=== PATIENT | male | born 1940 | race Caucasian/White ===

== ENCOUNTER → 2020-12-26 | Outpatient (CLI) | payer MEDICARE ==
--- NOTE | 2020-12-26 19:56 | CONS ---
CONSULTATION DATE OF SERVICE: 12/26/2020. 80-year-old gentleman has been evaluated in [facility] Center for his sleep problems and excessive daytime sleepiness and also for difficulties to initiate sleep. HISTORY OF PRESENT ILLNESS/SLEEP-WAKE EVALUATION: SLEEP SCHEDULE: The patient usually goes to bed around 11 p.m. and gets out of bed around 8 or 9:00 am. FALLING ASLEEP: He does have problems with falling asleep. He reads in bedroom. DURING SLEEP: He usually sleeps on the side position. He snores and wakes up from sleep 3 times with nocturia, dry mouth, and restless leg symptoms. DURING THE DAY/SLEEP WAKE EVALUATION: In the morning, patient wakes up tired, falling asleep during the day. Has episodes of depression. Harwood Sleepiness Scale is in the very high range of 21. According to patient, he can take naps any time. No vivid dreams during naps. No history of hypnagogic hallucinations, sleep paralysis or cataplexy. PAST MEDICAL HISTORY: Positive for bronchospasm, right lung bronchiectasis, COPD. PAST SURGICAL HISTORY: None. MEDICATIONS: Clonazepam 0.5 mg at bedtime. Ventolin on a p.r.n. basis. Vitamin C, B12, folic acid. SOCIAL HISTORY: Positive for smoking in the past; quit about 30 years ago. Alcohol consumption none. PHYSICAL EXAMINATION: GENERAL: A pleasant gentleman without distress. BP 106/61, HR 56, RR 15, height 5 feet 7 inches, weight 161.2, temperature 98.1, oxygen saturation at room air 96%. Oropharynx: Short distance between soft palate and posterior pharyngeal wall. Neck measures 16 inches in circumference. NECK: Supple, no JVD. Thyroid is not palpable. LUNGS: Clear to percussion and to auscultation. Good air exchange. No wheezing or rhonchi. HEART: S1, S2 regular. No murmurs, gallops, or rubs. ABDOMEN: Soft and nontender. Bowel sounds are present. No organomegaly appreciated. EXTREMITIES: No clubbing or cyanosis. SHELL CORE AND MOLDING SUPERVISOR: Awake, alert, and oriented X3. Cranial nerves 2 to 7 intact. There is no fasciculation or atrophy. noted. No focal deficits observed. IMPRESSION: 1. Snoring, awakenings from sleep 3 times with nocturia and dry mouth, significant excessive daytime sleepiness, possible obstructive sleep apnea-hypopnea syndrome. 2. Significant excessive daytime sleepiness with Harwood Sleepiness Scale of 21, which is extremely high, dictate necessity to include narcolepsy without cataplexy and hypersomnia in differential diagnosis. 3. History of right lung bronchiectasis, chronic obstructive pulmonary disease. 4. History of bronchospasm. PLAN: 1. Polysomnogram for evaluation of patient's breathing during sleep with multiple sleep latency test. The sleep study will be negative for obstructive sleep apnea- hypopnea syndrome. 2. CPAP/BiPAP titration if sleep study confirms obstructive sleep apnea-hypopnea syndrome. 3. Preferable position during sleep on the side. 4. No driving if patient feels any sleepiness. 5. I will see patient for follow up visit to explain results of testing and following plan. Thank you very much for referring this patient for consultation. Sincerely, Eduardo Chaney MD, PhD, FAASM Diplomat of [employer] Surgery Specialist of [facility] [place] MMODL / LINDAN: [id number] /
== END ==
LOC: SLEEP 11:46
PROVIDERS: ATTEND Internal Medicine
DX: R06.83 Snoring (principal); R35.1 Nocturia; J44.9 Chronic obstructive pulmonary disease, unspecified; Z87.891 Personal history of nicotine dependence; Z87.09 Personal history of other diseases of the respiratory system
CPT/HCPCS: 99211

== ENCOUNTER → 2021-03-07 | Outpatient (CLI) | payer MEDICARE, BC ==
--- NOTE | 2021-03-07 22:17 | SFUN ---
SLEEP CENTER FOLLOW UP NOTE DATE OF SERVICE: 03/07/2021 80-year-old gentleman has been followed in Sleep Center to discuss results of sleep study and following plan. I discussed results of sleep studies with patient in details. Diagnostic polysomnogram did not show significant abnormalities of respiration. Severe periodic limb movements have been documented 86.6 times per hours with 15.3 microarousals per hour. Multiple sleep latency test followed polysomnogram showed sleepiness. Mean sleep latency short 4.1 minutes average. One sleep onset REM period has been documented. The patient had iron profile done because low level of iron increases risk for periodic limb movements and level of ferritin is above normal range, so definitely does not indicate necessity for any additional iron supplement. MEDICATIONS: Clonazepam, Ventolin. PHYSICAL EXAMINATION: GENERAL: Patient in no distress. BP 117/66, HR 58, RR 15, oxygen saturation at room air 95%. Height 5 feet 7 inches, weight 161. HEENT: PERRLA, EOMI, evaluation of oropharynx showed tongue protrudes midline. NECK: Supple, no JVD. Thyroid is not palpable. LUNGS: Clear to percussion and to auscultation. Good air exchange. No wheezing or rhonchi. HEART: S1, S2 regular. No murmurs, gallops, or rubs. ABDOMEN: Soft and nontender. Bowel sounds are present. No organomegaly appreciated. EXTREMITIES: No clubbing or cyanosis. CHAIN SPLITTER: Awake, alert, and oriented X3. Cranial nerves 2 to 7 intact. There is no fasciculation or atrophy. noted. No focal deficits observed. IMPRESSION: 1. No significant respiratory abnormalities during the sleep study following today's criteria. 2. Severe periodic limb movements have been documented. 3. Significant excessive daytime sleepiness confirmed by multiple sleep latency test. mean sleep latency 6.1. One sleep onset REM periods have been documented. Differential diagnosis should include narcolepsy without cataplexy. 4. History of right lung bronchiectasis, chronic obstructive pulmonary disease. PLAN: 1. Trial with small was burst of dopaminergic agonists Mirapex 0.125 mg 1-2 tablets at bedtime to evaluate clinically patient responds on improvements alertness during the day. 2. If no response on treatment of periodic limb movements, the patient will be started on treatment with modafinil 200 mg one tablet in the morning with a goal to prevent sleepiness during the day. 3. Sleep hygiene with regular time in bed for 7-1/2 to 8 hours. 4. No driving if feeling sleepiness. Thank you very much for allowing me to participate in management of your patient. Sincerely, Eduardo Chaney MD, PhD, FAASM Diplomat of [employer] Sleep Medicine Board of [employer] Physical Education Department Chair of [facility] [place] MMODL / ILNDAN: [id number] /
== END | disposition home or self-care (01) ==
LOC: SLEEP 13:07
PROVIDERS: ATTEND Internal Medicine
DX: G47.10 Hypersomnia, unspecified (principal); G47.61 Periodic limb movement disorder; J44.9 Chronic obstructive pulmonary disease, unspecified; Z87.09 Personal history of other diseases of the respiratory system

== ENCOUNTER → 2021-09-10 | Outpatient (CLI) | payer MEDICARE ==
--- NOTE | 2021-09-10 17:05 | XR ---
Right shoulder HISTORY: Pain in right shoulder 3 views of the right shoulder Acromioclavicular joint shows arthropathy with hypertrophic change. Right lung apex as visualized is normal. Bone mineralization is reduced. Alignment is maintained. There is a distal acromial spur. No fracture or dislocation. Mild spurring at the glenohumeral joint. IMPRESSION: Correlate for impingement. Consider shoulder MRI. Osteoarthritis.
== END ==
LOC: RADXRMAIN 12:52
PROVIDERS: ATTEND Internal Medicine
DX: M19.011 Primary osteoarthritis, right shoulder (principal)

== ENCOUNTER → 2021-09-24 | Outpatient (CLI) | payer MEDICARE ==
--- NOTE | 2021-09-24 19:26 | MR ---
EXAMINATION TYPE: MR shoulder RT wo con DATE OF EXAM: 09/24/2021 COMPARISON: Plain film 09/10/2021 HISTORY: Right shoulder painfor 2 years. TECHNIQUE: Multiplanar, multisequence imaging of the right shoulder is performed without contrast. FINDINGS: Rotator Cuff: There is a partial full-thickness tear of the supraspinatus tendon seen with extension to the level the musculotendinous junction anteriorly, there is abnormal thickening of the rotator cu ff consistent with tendinopathy. Abnormal thickening also present along the anterior margin of the ortega bscapularis tendon abnormal signal suggestive at least a partially frayed appearance Acromioclavicular Joint: Acromioclavicular joint shows arthropathy change with some mass effect on th e musculotendinous junction of supraspinatus, there is a distal acromial spur present Glenohumeral Joint: Intact, there is arthropathy change with remodeling of the humeral head, shoulder s somewhat high riding Labrum: Suspect there is an anterior labral tear Biceps Tendon: Long head of biceps tendon shows abnormal thickening and is subluxed anteriorly and me dially from the bicipital groove, there is fluid signal present along the tendon Bone marrow signal: Pseudocysts are present within the humeral head. Other: Fluid signal is present in the subacromial subdeltoid bursa. Fluid signal present along the mu sculotendinous junction of subscapularis IMPRESSION: Rotator cuff tear as described, possible anterior labral tear. There is a joint effusion. Additional findings above.
== END | disposition home or self-care (01) ==
LOC: RADMRIMAIN 15:44
PROVIDERS: ATTEND Internal Medicine
DX: M75.111 Incomplete rotator cuff tear or rupture of right shoulder, not specified as traumatic (principal); M25.411 Effusion, right shoulder; M85.611 Other cyst of bone, right shoulder; M12.811 Other specific arthropathies, not elsewhere classified, right shoulder; M67.813 Other specified disorders of tendon, right shoulder

== ENCOUNTER 2022-07-17 09:10 | Emergency (ER) | payer MEDICARE ==
[2022-07-17 09:15] VITALS: RESP 18
--- NOTE | 2022-07-17 10:48 | XR ---
EXAMINATION TYPE: XR shoulder complete RT DATE OF EXAM: 07/17/2022 10:17 AM INDICATION: Patient age:Male; 82 years old; Reason for study: pain; COMPARISON: 09/10/2021 TECHNIQUE: The left shoulder was examined in AP, internally rotated and scapular Y projections. . FINDINGS: Degeneration of the acromioclavicular and glenohumeral joints. No evidence of acute osseous pathology, joint dislocation, or soft tissue swelling. The remaining por tions of the visualized chest are unremarkable. IMPRESSION: 1. No acute osseous pathology. 2. 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
[2022-07-17] MEDS ORDERED: ACET/COD 300 MG/30 MG STARTER PACK 6 TAB BTL PO STA (11:10)
--- NOTE | 2022-07-17 11:10 | ED ---
Upper Extremity HPI - General Chief Complaint: Extremity Injury, Upper Stated Complaint: rt shoulder injury Time Seen by Provider: 07/17/22 09:24 Source: patient, RN notes reviewed Mode of arrival: ambulatory Limitations: no limitations - History of Present Illness Initial Comments: 82-year-old male presents emergency from chief complaint of shoulder pain on the right side. Patient states that he's been having issues of the last 3 months has been therapy from his primary care physician. Patient states last night he was working about chest tightness when he had increasing discomfort and pain with range of motion. States it's very limited denies any paresthesias no fall he is left-hand dominant. Patient states he called orthopedics who advised him come emergency from for pain relief. - Related Data Previous Rx's Medication Instructions Recorded predniSONE 50 mg PO DAILY #5 tab 07/17/22 Allergies Allergy/AdvReac Type Severity Reaction Status Date / Time No Known Allergies Allergy Verified 07/17/22 09:15 Review of Systems ROS Statement: Those systems with pertinent positive or pertinent negative responses have been documented in the HPI. ROS Other: All systems not noted in ROS Statement are negative. Past Medical History Past Medical History: No Reported History History of Any Multi-Drug Resistant Organisms: None Reported Past Surgical History: Orthopedic Surgery Additional Past Surgical History / Comment(s): facial surgery Past Psychological History: No Psychological Hx Reported Smoking Status: Never smoker Past Alcohol Use History: Daily Past Drug Use History: None Reported General Exam Limitations: no limitations General appearance: alert, in no apparent distress Head exam: Present: atraumatic, normocephalic, normal inspection Eye exam: Present: normal appearance, PERRL, EOMI. Absent: scleral icterus, conjunctival injection, periorbital swelling ENT exam: Present: normal exam, normal oropharynx, mucous membranes moist Neck exam: Present: normal inspection, full ROM. Absent: tenderness, meningismus, lymphadenopathy Respiratory exam: Present: normal lung sounds bilaterally. Absent: respiratory distress, wheezes, rales, rhonchi, stridor Cardiovascular Exam: Present: regular rate, normal rhythm, normal heart sounds. Absent: systolic murmur, diastolic murmur, rubs, gallop, clicks Extremities exam: Present: other (Right shoulder there is minimal tenderness there is pain with active range of motion minimal pain with passive, no iris deformity no clavicular tenderness no tenderness along the scapula) Course Vital Signs 07/17/22 09:11 Temperature 97.7 F Pulse Rate 59 L Respiratory 18 Rate Blood Pressure 150/87 O2 Sat by Pulse 98 Oximetry Medical Decision Making - Medical Decision Making X-ray shows significant osteoporosis type changes, otherwise no acute osseous le tristin or abnormality as interpreted by me and radiology. Patient has right shoulder tendinitis, right shoulder rotator cuff syndrome. Patient will be followed up with orthopedics return parameters were discussed. Disposition Clinical Impression: Right shoulder tendinitis, Rotator cuff syndrome of right shoulder Disposition: HOME SELF-CARE Condition: Stable Instructions (If sedation given, give patient instructions): Rotator Cuff Tendinitis (ED) Additional Instructions: Please return to the Emergency Department if symptoms worsen or any other concerns. Prescriptions: predniSONE 50 mg PO DAILY #5 tab Is patient prescribed a controlled substance at d/c from ED?: No Referrals: Ho Amador DO [Primary Care Provider] - 1-2 days Time of Disposition: 11:10
[2022-07-17] MEDS ORDERED: methylPREDNISolone SOD SUCCI 125 MG/2 ML VIAL IM ONE (11:17)
[2022-07-17 11:56] VITALS: BP 148/78; PULSE 60; TEMP 97
== END 2022-07-17 11:55 | disposition home or self-care (01) ==
LOC: EC 09:10
DX: M77.8 Other enthesopathies, not elsewhere classified (principal); M75.101 Unspecified rotator cuff tear or rupture of right shoulder, not specified as traumatic
CPT/HCPCS: 73030; 99283; 96372; J2930

== ENCOUNTER → 2022-07-17 | Outpatient (CLI) | payer MEDICARE ==
--- NOTE | 2022-07-17 09:58 | BD ---
EXAMINATION TYPE: Axial Bone Density DATE OF EXAM: 07/17/2022 COMPARISON: BASELINE CLINICAL HISTORY: 82 years year old Male. ICD-10 CODE: M89.8X8 DISORDER OF BONE DENSITY Height: 66.5 Weight: 166 FRAX RISK QUESTIONS: Alcohol (3 or more units per day): YES Family History (Parent hip fracture): NO Glucocorticoids (More than 3mos): NO (Ex: prednisone, prednisolone, methylprednisolone, dexamethasone, and hydrocortisone). History of Fracture in Adulthood: YES, LEFT FINGERS AND LEFT ZYGOMATIC ARCH Secondary Osteoporosis: 1. Type 1 Diabetes: NO 2. Hyperthyroidism: NO 3. Menopause before 45: N/A 4. Malnutrition: NO 5. Chronic liver disease: NO Rheumatoid Arthritis: NO Current Tobacco Use: NO RISK FACTORS HISTORY OF: Hip Fracture (Right/Left): NO Spine Fracture: NO History of Wrist Fracture: NO Surgery to Spine/Hip(right/left)/Wrist (right/left): NO Family History of Osteoporosis: NO Active: YES Diet low in dairy products/other sources of calcium: NO Lost more than 2 inches in height since high school: YES Frequent falls: NO Poor Health: GOOD Hyperparathyroidism: NO Adrenal Insufficiency: NO MEDICATIONS: Additional Medications: PROBIOTIC, B12, B1, VIT C, VIT D, VIT K, NO PRESCRIPTION MEDICATIONS Additional History: NONE EXAM MEASUREMENTS: Bone mineral densitometry was performed using the [employer] System. Bone mineral density as measured about the Lumbar spine is: ----- L1-L4(G/cm2): 1.227 T Score Values are as follows: ----- L1: 0.0 ----- L2: 0.3 ----- L3: 0.6 ----- L4: 0.6 ----- L1-L4: 0.4 BASELINE Bone mineral density about the R hip (g/cm2): 0.857 Bone mineral density about the L hip (g/cm2): 0.790 T Score values are as follows: -----R Neck: -1.3 -----L Neck: -1.8 -----R Total: -0.6 -----L Total: -1.1 BASELINE FRAX%s: The graph provided illustrates a 9.7% chance for a major osteoporotic fx and a 4.0% chance fo r the hips probability for fx in 10 years time. IMPRESSION: Osteopenia (T Score between -2.5 and -1). There is slightly increased risk of fracture and the patient may be considered for treatment. Re-Screen 2-5 years. NOTE: T-SCORE=SD OF THE YOUNG ADULT MEAN.
== END | disposition home or self-care (01) ==
LOC: RADBDWWP 08:15
PROVIDERS: ATTEND Internal Medicine
DX: M85.89 Other specified disorders of bone density and structure, multiple sites (principal)
CPT/HCPCS: 77080

== ENCOUNTER → 2024-02-08 | Outpatient (CLI) | payer MEDICARE ==
--- NOTE | 2024-02-08 16:23 | XR ---
EXAMINATION TYPE: XR shoulder complete LT DATE OF EXAM: 02/08/2024 4:09 PM CLINICAL INDICATION:Male, 83 years old with history of M25.512 PAIN IN LEFT SHOULDER; [facility] COMPARISON: TECHNIQUE: XR shoulder complete LT; examined in AP, internally rotated and scapular Y projections. FINDINGS: No evidence of acute osseous pathology, joint dislocation, or soft tissue swelling. The remaining po rtions of the visualized chest are unremarkable. Degeneration changes of the acromion, distal clavic le with osteophyte formation. There is osteophyte formation of the glenoid and humeral head. There is joint space narrowing of glenohumeral joint. IMPRESSION: 1. No acute osseous pathology. 2. Mild shoulder osteoarthrosis.
== END | disposition home or self-care (01) ==
LOC: RADXRMAIN 15:53
PROVIDERS: ATTEND Internal Medicine
DX: M19.012 Primary osteoarthritis, left shoulder (principal)

== ENCOUNTER → 2024-03-18 | Outpatient (CLI) | payer MEDICARE ==
--- NOTE | 2024-03-18 12:10 | XR ---
EXAMINATION TYPE: XR knee limited RT DATE OF EXAM: 03/18/2024 10:31 AM CLINICAL INDICATION: Male, 83 years old with history of M25.561 right knee pain; [facility] COMPARISON: None. TECHNIQUE: XR knee limited RT; examined in Frontal, lateral projections. FINDINGS: No evidence of any acute osseous pathology, soft tissue swelling, or joint effusion is no eneida. Tricompartmental osteophyte formation involving the femoral condyles, tibial plateau and patella . Mild joint space narrowing. IMPRESSION: 1. No acute osseous pathology. 2. Mild tricompartmental osteoarthritic changes.
== END | disposition home or self-care (01) ==
LOC: RADXRMAIN 10:16
PROVIDERS: ATTEND Internal Medicine
DX: M25.561 Pain in right knee

== ENCOUNTER 2024-04-21 09:20 | Observation (INO) | payer MEDICARE ==
--- NOTE | 2024-04-21 09:50 | ED ---
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 Patient states this morning every time he attempted he felt like he might pass out. Patient states he was unable to stand because he thought he definitely would pass out. Patient states he has done this multiple times and it occurs every single time he tries it. Patient denies any history of atrial fibrillation. Patient denies any chest pain or palpitations. Patient states he is a little short of breath but no different than his baseline. Patient [place] any fever chills or cough or patient has any abdominal pain patient has nausea vomiting or diarrhea. - Related Data Previous Rx's Medication Instructions Recorded predniSONE 50 mg PO DAILY #5 tab 07/17/22 Allergies Allergy/AdvReac Type Severity Reaction Status Date / Time No Known Allergies Allergy Verified 04/21/24 09:46 Review of Systems ROS Statement: Those systems with pertinent positive or pertinent negative responses have been documented in the HPI. ROS Other: All systems not noted in ROS Statement are negative. 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 Patient is nontoxic and well- hydrated and is in mild distress. ENT: Neck is soft and supple. No significant lymphadenopathy is noted. Oropharynx is clear. Moist mucous membranes. Neck has full range of motion without eliciting any pain. EYES: The sclera were anicteric and conjunctiva were pink and moist. Extraocular movements were intact and pupils were equal round and reactive to light. Eyelids were unremarkable. PULMONARY: Unlabored respirations. Good breath sounds bilaterally. No audible rales rhonchi or wheezing was noted. CARDIOVASCULAR: Patient is tachycardic at 120 beats a minute and it is irregular ABDOMEN: Soft and nontender with normal bowel sounds. SKIN: Skin is clear with no lesions or rashes and otherwise unremarkable. NEUROLOGIC: Patient is alert and oriented x3. Cranial nerves II through XII are grossly intact. Motor and sensory are also intact. Normal speech, volume and content. Symmetrical smile. MUSCULOSKELETAL: Normal extremities with adequate strength and full range of motion. LYMPHATICS: No significant lymphadenopathy is noted PSYCHIATRIC: Normal psychiatric evaluation. Limitations: no limitations Course Vital Signs 04/21/24 04/21/24 04/21/24 09:27 10:56 11:32 Temperature 97.6 F Pulse Rate 122 H 116 H Pulse Rate [ Sitting Journeyman Lineman] Pulse Rate [ Standing Journeyman Lineman ] Pulse Rate [ 130 H Supine Pulse Oximetery] Respiratory 20 18 Rate Blood Pressure 95/75 121/88 Blood Pressure [Right Arm Sitting] Blood Pressure [Right Arm Standing] Blood Pressure 104/88 [Right Arm Supine] O2 Sat by Pulse 96 Oximetry 04/21/24 04/21/24 04/21/24 11:33 11:34 12:30 Temperature Pulse Rate 129 H Pulse Rate [ 115 H Sitting Journeyman Lineman] Pulse Rate [ 145 H Standing Journeyman Lineman ] Pulse Rate [ Supine Pulse Oximetery] Respiratory 18 Rate Blood Pressure 111/98 Blood Pressure 85/71 [Right Arm Sitting] Blood Pressure 73/55 [Right Arm Standing] Blood Pressure [Right Arm Supine] O2 Sat by Pulse 96 Oximetry 04/21/24 12:45 Temperature Pulse Rate Pulse Rate [ 68 Sitting Journeyman Lineman] Pulse Rate [ Standing Journeyman Lineman ] Pulse Rate [ Supine Pulse Oximetery] Respiratory 18 Rate Blood Pressure Blood Pressure 102/68 [Right Arm Sitting] Blood Pressure [Right Arm Standing] Blood Pressure [Right Arm Supine] O2 Sat by Pulse 96 Oximetry Medical Decision Making - Medical Decision Making EKG shows atrial fibrillation at 121 bpm QRS is 89 QT interval is 294 QTc is 366. No ST segment elevation or depression is noted there is no old EKG to compare to Was pt. sent in by a medical professional or institution (, PA, SPRING TACKER, urgent care, hospital, or alf...) When possible be specific @ -No Did you speak to anyone other than the patient for history (EMS, parent, family, police, friend...)? What history was obtained from this source @ -No Did you review nursing and triage notes (agree or disagree)? Why? @ -I reviewed and agree with nursing and triage notes Were old charts reviewed (outside hosp., previous admission, EMS record, old EKG, old radiological studies, urgent care reports/EKG's, alf records)? Report findings @ -No old charts were reviewed Differential Diagnosis? @ -Differential Syncope: Valvular disease, hypertrophic cardiomyopathy, pulmonary embolism, tamponade, tachycardia, bradycardia, CT, hypovolemia, hemorrhage, dissection, anemia, intracranial hemorrhage, seizure, hypoglycemia, carbon monoxide poisoning, this is not meant to be an all-inclusive list. EKG interpreted by me (3pts min.). @ -As above X-rays interpreted by me (1pt min.). @ -Chest x-ray showed no acute abnormality CT interpreted by me (1pt min.). @ -None done U/S interpreted by me (1pt. min.). @ -None done What testing was considered but not performed or refused? (CT, X-rays, U/S, labs)? Why? @ -None What meds were considered but not given or refused? Why? @ -None Did you discuss the management of the patient with other professionals (professionals i.e. , PA, SPRING TACKER, lab, RT, psych nurse, social media intern, safety deposit clerk, teacher, restoration officer, case worker)? Give summary @ -I spoke with Dr. Singh and he agreed to admit the patient Was smoking cessation discussed for >3mins.? @ -No Was critical care preformed (if so, how long)? @ -No Were there social determinants of health that impacted care today? How? (Homelessness, low income, unemployed, alcoholism, drug addiction, transportation, low edu. Level, literacy, decrease access to med. care, senior care, rehab)? @ -No Was there de-escalation of care discussed even if they declined (Discuss DNR or withdrawal of care, Hospice)? DNR status @ -No What co-morbidities impacted this encounter? (DM, HTN, Smoking, COPD, CAD, Cancer, CVA, ARF, Chemo, Hep., AIDS, mental health diagnosis, sleep apnea, morbid obesity)? @ -None Was patient admitted / discharged? Hospital course, mention meds given and route, prescriptions, significant lab abnormalities, going to OR and other pertinent info. @ -Patient was orthostatic positive was unable to stand because he thought he was in a pass out and his blood pressure did not drop. Patient was given a liter half of fluid and he still remained orthostatic though he was able to stand at this point. Patient also has atrial fibrillation which she states he is never heard of and they there is no old EKG to compare to Undiagnosed new problem with uncertain prognosis? @ -No Drug Therapy requiring intensive monitoring for toxicity (Heparin, Nitro, Insulin, Cardizem)? @ -No Were any procedures done? @ -No Diagnosis/symptom? @ -New onset A-fib Acute, or Chronic, or Acute on Chronic? @ -Acute Uncomplicated (without systemic symptoms) or Complicated (systemic symptoms)? @ -Complicated Side effects of treatment? @ -No Exacerbation, Progression, or Severe Exacerbation? @ -No Poses a threat to life or bodily function? How? (Chest pain, USA, CT, pneumonia, PE, COPD, DKA, ARF, appy, cholecystitis, CVA, Diverticulitis, Homicidal, Suicidal, threat to staff... and all critical care pts) @ -Yes this could lead to poor perfusion and endorgan dysfunction Diagnosis/symptom? @ -Near syncope Acute, or Chronic, or Acute on Chronic? @ -Acute Uncomplicated (without systemic symptoms) or Complicated (systemic symptoms)? @ -Complicated Side effects of treatment? @ -None Exacerbation, Progression, or Severe Exacerbation] @ -No Poses a threat to life or bodily function? @ -Yes this could be secondary to a life-threatening problem. - Lab Data Result diagrams: 04/21/24 09:51 04/21/24 09:51 Lab Results 04/21/24 04/21/24 04/21/24 Range/Units 09:51 09:51 09:51 WBC 7.6 (3.8-10.6) k/uL RBC 4.48 (4.30-5.90) m/uL Hgb 14.3 (13.0-17.5) gm/dL Hct 42.4 (39.0-53.0) % MCV 94.7 (80.0-100.0) fL MCH 31.9 (25.0-35.0) pg MCHC 33.7 (31.0-37.0) g/dL RDW 11.8 (11.5-15.5) % Plt Count 231 (150-450) k/uL MPV 7.1 Neutrophils % 82 % Lymphocytes % 12 % Monocytes % 3 % Eosinophils % 1 % Basophils % 0 % Neutrophils # 6.2 (1.3-7.7) k/uL Lymphocytes # 0.9 L (1.0-4.8) k/uL Monocytes # 0.3 (0-1.0) k/uL Eosinophils # 0.1 (0-0.7) k/uL Basophils # 0.0 (0-0.2) k/uL PT 11.9 (10.0-12.5) sec INR 1.1 (<1.2) APTT 24.0 (22.0-30.0) sec D-Dimer 0.25 (<0.60) mg/L FEU Sodium 139 (137-145) mmol/L Potassium 4.1 (3.5-5.1) mmol/L Chloride 111 H (98-107) mmol/L Carbon Dioxide 25 (22-30) mmol/L Anion Gap 3 mmol/L BUN 19 (9-20) mg/dL Creatinine 0.93 (0.66-1.25) mg/dL Est GFR (CKD-EPI)AfAm 88 (>60 ml/min/1.73 sqM) Est GFR (CKD-EPI)NonAf 76 (>60 ml/min/1.73 sqM) Glucose 114 H (74-99) mg/dL Calcium 8.9 (8.4-10.2) mg/dL Magnesium 2.0 (1.6-2.3) mg/dL Total Bilirubin 1.0 (0.2-1.3) mg/dL AST 22 (17-59) U/L ALT 17 (4-49) U/L Alkaline Phosphatase 55 (38-126) U/L Troponin I (0.000-0.034) ng/mL Total Protein 6.2 L (6.3-8.2) g/dL Albumin 3.7 (3.5-5.0) g/dL 04/21/24 Range/Units 09:51 WBC (3.8-10.6) k/uL RBC (4.30-5.90) m/uL Hgb (13.0-17.5) gm/dL Hct (39.0-53.0) % MCV (80.0-100.0) fL MCH (25.0-35.0) pg MCHC (31.0-37.0) g/dL RDW (11.5-15.5) % Plt Count (150-450) k/uL MPV Neutrophils % % Lymphocytes % % Monocytes % % Eosinophils % % Basophils % % Neutrophils # (1.3-7.7) k/uL Lymphocytes # (1.0-4.8) k/uL Monocytes # (0-1.0) k/uL Eosinophils # (0-0.7) k/uL Basophils # (0-0.2) k/uL PT (10.0-12.5) sec INR (<1.2) APTT (22.0-30.0) sec D-Dimer (<0.60) mg/L FEU Sodium (137-145) mmol/L Potassium (3.5-5.1) mmol/L Chloride (98-107) mmol/L Carbon Dioxide (22-30) mmol/L Anion Gap mmol/L BUN (9-20) mg/dL Creatinine (0.66-1.25) mg/dL Est GFR (CKD-EPI)AfAm (>60 ml/min/1.73 sqM) Est GFR (CKD-EPI)NonAf (>60 ml/min/1.73 sqM) Glucose (74-99) mg/dL Calcium (8.4-10.2) mg/dL Magnesium (1.6-2.3) mg/dL Total Bilirubin (0.2-1.3) mg/dL AST (17-59) U/L ALT (4-49) U/L Alkaline Phosphatase (38-126) U/L Troponin I <0.012 (0.000-0.034) ng/mL Total Protein (6.3-8.2) g/dL Albumin (3.5-5.0) g/dL Disposition Clinical Impression: Near syncope, New onset a-fib Disposition: ADMITTED IP TO THIS [facility] Referrals: Kaylene Singh MD [Primary Care Provider] - 1-2 days Time of Disposition: 11:54
[2024-04-21] MEDS: SODIUM CHLORIDE 0.9% 1,000 ML IV ONE (10:10)
[2024-04-21] MEDS: SODIUM CHLORIDE 0.9% 500 ML 500 ML IV ONE (10:15)
[2024-04-21 10:21] LABS: Basophils % (A) 0 %; Eosinophils # (A) 0.1 k/uL (0-0.7); Eosinophils % (A) 1 %; HCT 42.4 % (39.0-53.0); HGB 14.3 gm/dL (13.0-17.5); Lymphocytes # (A) 0.9 k/uL (1.0-4.8); Lymphocytes % (A) 12 %; MCH 31.9 pg (25.0-35.0); MCHC 33.7 g/dL (31.0-37.0); MCV 94.7 fL (80.0-100.0); Mean Platelet Volume 7.1; Monocytes # (A) 0.3 k/uL (0-1.0); Monocytes % (A) 3 %; Neutrophils # (A) 6.2 k/uL (1.3-7.7); Neutrophils % (A) 82 %; Platelet Count 231 k/uL (150-450); RBC 4.48 m/uL (4.30-5.90); RDW 11.8 % (11.5-15.5); WBC 7.6 k/uL (3.8-10.6)
[2024-04-21 10:34] LABS: INR 1.1 (<1.2); Prothrombin Time 11.9 sec (10.0-12.5)
[2024-04-21 10:36] LABS: ALT 17 U/L (4-49); AST 22 U/L (17-59); African American GFR (CKD) 88 (>60 ml/min/1.73 sqM); Albumin 3.7 g/dL (3.5-5.0); Alkaline Phosphatase 55 U/L (38-126); Anion Gap 3 mmol/L; Blood Urea Nitrogen 19 mg/dL (9-20); Calcium 8.9 mg/dL (8.4-10.2); Carbon Dioxide 25 mmol/L (22-30); Chloride 111 mmol/L (98-107); Glucose 114 mg/dL (74-99); Non-African American GFR(CKD) 76 (>60 ml/min/1.73 sqM); Potassium 4.1 mmol/L (3.5-5.1); Sodium 139 mmol/L (137-145); Total Protein 6.2 g/dL (6.3-8.2)
--- NOTE | 2024-04-21 10:54 | XR ---
EXAMINATION TYPE: XR chest 2V DATE OF EXAM: 04/21/2024 COMPARISON: NONE HISTORY: Chest pain TECHNIQUE: Frontal and lateral views of the chest are obtained. FINDINGS: There is no focal air space opacity, pleural effusion, or pneumothorax seen. The cardiac silhouett e size is within normal limits. There is a chronic rotator cuff tear of the right shoulder. IMPRESSION: No acute cardiopulmonary process. [facility], Workstation: [email or web address] 04/21/2024 10:52 AM
[2024-04-21] MEDS: SODIUM CHLORIDE 0.9% 1,000 ML IV STA (12:38)
[2024-04-21] MEDS: HEPARIN SOD,PORK IN 0.45% NACL 25,000 UNIT in 0.45% NACL 1 250ML.BAG IV SCH (12:41)
[2024-04-21] MEDS: HEPARIN SODIUM 1,000 UN/ML (10ML VL) IV ONE (12:44)
[2024-04-21] MEDS ORDERED: NITROGLYCERIN SL TABS 0.4 MG TAB SUBLINGUAL PRN (13:05)
--- NOTE | 2024-04-21 13:47 | P.CRDCN ---
History of Present Illness Consult date: 04/21/24 Consult reason: atrial fibrillation History of present illness: This is an 83-year-old male with no previous cardiac history and does not follow with a brusher. He has a past medical history of what he calls an SA node that does not work, asthma, possible TIA in the past. We have been asked to evaluate the patient for A-fib. Patient woke up this morning was feeling dizzy with some shortness of breath thought that he was going to pass out and when he tried to stand it became worse. He tried multiple times without improvement. He also had some weakness in 1 arm. No palpitations and no chest pain. He denies having any palpitations. Patient was found to be in A-fib with RVR. He was started on heparin drip. He is seen today in the emergency center waiting for bed. Telemetry is sinus rhythm. EKG: A-fib at 121 bpm Chest x-ray: No acute process Laboratory studies: CBC within normal limits. D-dimer 0.25. Sodium 139 potassi um 4.1, BUN 19 creatinine 0.93. Blood sugar 114. Troponin negative. Magnesium 2.0 Home cardiac medications: None Review Of Systems: At the time of my exam: CONSTITUTIONAL: Denies fever or chills. HEENT: Denies blurred vision, vision changes, or eye pain. Denies hemoptysis CARDIOVASCULAR: Denies chest pain. Denies orthopnea. Denies PND. Denies palpitations RESPIRATORY: Denies shortness of breath. GASTROINTESTINAL: Denies abdominal pain. Denies nausea or vomiting. HEMATOLOGIC: Denies bleeding disorders. GENITOURINARY: Denies any blood in urine. SKIN: Denies puritis. Denies rash. Physical examination: Gen: This is a 83-year-old male resting and appears to be in no acute distress VS: reviewed HEENT: Head is atraumatic, normocephalic. Pupils equal, round. Sclerae is anicteric. NECK: Supple. No JVD. LUNGS: Clear to auscultation. No wheezes or rhonchi. No intercostal retractions. HEART: Regular rate and rhythm. ABDOMEN: Soft No tenderness. EXTREMITIES: No pedal edema. No calf tenderness. NEUROLOGICAL: Patient is awake, alert and oriented x3. Assessment: New onset with A-fib RVR, converted to sinus rhythm Possible TIA, neurology on consult Plan: Discontinue heparin drip and start patient on Eliquis 5 mg twice daily Patient will be started on Lopressor 12.5 mg twice daily Obtain 2-D echocardiogram and Doppler study to assess cardiac structure and function Further recommendations to follow based upon clinical course Thank you kindly for this consultation. Nurse practitioner note has been reviewed, I agree with documented findings and plan of care. Patient was seen and examined. 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 History of Any Multi-Drug Resistant Organisms: None Reported Past Surgical History: Orthopedic Surgery Additional Past Surgical History / Comment(s): facial surgery Past Psychological History: No Psychological Hx Reported Smoking Status: Never smoker Past Alcohol Use History: Daily Past Drug Use History: None Reported Medications and Allergies Home Medications Medication Instructions Recorded Confirmed Type Famotidine 40 mg PO BID 04/21/24 04/21/24 History Fluticasone Propion/Salmeterol 2 puff INHALATION DIRECTED 04/21/24 04/21/24 History [Advair Hfa 115-21 Mcg Inhaler] L.acidoph,Paracasei, B.lactis 1 cap PO DAILY 04/21/24 04/21/24 History [Probiotic] Nystatin 100,000 Unit/ml Susp 5 ml PO TID 04/21/24 04/21/24 History [Mycostatin Oral Susp] [place]-3/Dha/Epa/Fish Oil [Fish Oil 1 cap PO DAILY 04/21/24 04/21/24 History 1,000 mg Softgel] Red Yeast Rice 1,200 mg PO DAILY 04/21/24 04/21/24 History Vitamin B-12 [place] (Unknown 3 sprays MUCOUS MEM DAILY 04/21/24 04/21/24 History Strength) Allergies Allergy/AdvReac Type Severity Reaction Status Date / Time No Known Allergies Allergy Verified 04/21/24 13:43 Physical Exam Vitals: Vital Signs Temp Pulse Pulse Pulse Pulse Resp BP 04/21/24 12:45 68 18 04/21/24 12:30 129 H 18 111/98 04/21/24 11:34 145 H 04/21/24 11:33 115 H 04/21/24 11:32 130 H 04/21/24 10:56 116 H 18 121/88 04/21/24 09:27 97.6 F 122 H 20 95/75 BP BP BP Pulse Ox 04/21/24 12:45 102/68 96 04/21/24 12:30 96 04/21/24 11:34 73/55 04/21/24 11:33 85/71 04/21/24 11:32 104/88 04/21/24 10:56 96 04/21/24 09:27 Intake and Output 04/20/24 04/21/24 04/21/24 22:59 06:59 14:59 Intake Total 1500 Output Total 400 Balance 1100 Intake: Intake, IV Titration 1500 Amount Sodium Chloride 0.9% 500 1500 ml 500 ml @ 999 mls/hr IV .Q31M ONE Rx#:[id number] Output: Urine 400 Other: Weight 72.575 kg Results 04/21/24 09:51 04/21/24 09:51 Cardiac Enzymes 04/21/24 04/21/24 Range/Units 09:51 09:51 AST 22 (17-59) U/L Troponin I <0.012 (0.000-0.034) ng/mL Coagulation 04/21/24 Range/Units 09:51 PT 11.9 (10.0-12.5) sec APTT 24.0 (22.0-30.0) sec CBC 04/21/24 Range/Units 09:51 WBC 7.6 (3.8-10.6) k/uL RBC 4.48 (4.30-5.90) m/uL Hgb 14.3 (13.0-17.5) gm/dL Hct 42.4 (39.0-53.0) % Plt Count 231 (150-450) k/uL Comprehensive Metabolic Panel 04/21/24 Range/Units 09:51 Sodium 139 (137-145) mmol/L Potassium 4.1 (3.5-5.1) mmol/L Chloride 111 H (98-107) mmol/L Carbon Dioxide 25 (22-30) mmol/L BUN 19 (9-20) mg/dL Creatinine 0.93 (0.66-1.25) mg/dL Glucose 114 H (74-99) mg/dL Calcium 8.9 (8.4-10.2) mg/dL AST 22 (17-59) U/L ALT 17 (4-49) U/L Alkaline Phosphatase 55 (38-126) U/L Total Protein 6.2 L (6.3-8.2) g/dL Albumin 3.7 (3.5-5.0) g/dL Current Medications Generic Name Dose Route Start Last Admin Trade Name Freq PRN Reason Stop Dose Admin Aspirin 81 mg 04/22/24 09:00 Aspirin 81 Mg PO DAILY CASSIE Heparin Sodium/Sodium Chloride 250 mls @ 8.709 mls/hr 04/21/24 12:15 04/21/24 12:41 25,000 unit/ Sodium Chloride IV 12 units/kg/hr .Q24H CASSIE 8.709 mls/hr Administration Protocol 12 UNITS/KG/HR Nitroglycerin 0.4 mg 04/21/24 13:05 Nitroglycerin Sl Tabs 0.4 Mg Tab SUBLINGUAL Q5M PRN Chest Pain Intake and Output 04/20/24 04/21/24 04/21/24 22:59 06:59 14:59 Intake Total 1500 Output Total 400 Balance 1100 Intake: Intake, IV Titration 1500 Amount Sodium Chloride 0.9% 500 1500 ml 500 ml @ 999 mls/hr IV .Q31M ONE Rx#:[id number] Output: Urine 400 Other: Weight 72.575 kg Patient Weight 04/22/24 06:59 Weight 72.575 kg 04/21/24 09:51 04/21/24 09:51
[2024-04-21] MEDS: APIXABAN 5 MG TAB PO SCH (15:12)
[2024-04-21] MEDS: METOPROLOL TARTRATE 12.5 MG TAB PO SCH (20:26)
[2024-04-21 23:19] VITALS: RESP 16
[2024-04-22 08:44] LABS: Chol/HDL Ratio 3.61 Ratio; LDL Cholesterol,Calculated 113.1 mg/dL (0.0-131.0); VLDL Calculation 17.04 mg/dL (5.00-40.00)
[2024-04-22] MEDS ORDERED: ASPIRIN 325 MG TAB PO SCH (09:00)
[2024-04-22] MEDS: ASPIRIN 81 MG PO SCH (09:27)
--- NOTE | 2024-04-22 11:18 | P.PN ---
Subjective HISTORY OF PRESENT ILLNESS: This is an 83-year-old male with no previous cardiac history and does not follow with a seat installer. He has a past medical history of what he calls an SA node that does not work, asthma, possible TIA in the past. We have been asked to evaluate the patient for A-fib. Patient woke up this morning was feeling dizzy with some shortness of breath thought that he was going to pass out and when he tried to stand it became worse. He tried multiple times without improvement. He also had some weakness in 1 arm. No palpitations and no chest pain. He denies having any palpitations. Patient was found to be in A-fib with RVR. He was started on heparin drip. He is seen today in the emergency center waiting for bed. Telemetry is sinus rhythm. 04/22/2024 Patient examined this morning at the bedside. Patient currently denies chest pain or pressure. He denies shortness of breath. He is maintaining sinus mecha nism with heart rate in the 70s. 2D echo remains pending. PHYSICAL EXAM: VITAL SIGNS: Reviewed. GENERAL: Well-developed in no acute distress. NECK: Supple. No JVD or thyromegaly LUNGS: Respirations even and unlabored. Lungs essentially clear to auscultation bilaterally. HEART: Regular rate and rhythm. S1 and S2 heard. EXTREMITIES: Normal range of motion. No clubbing or cyanosis. Peripheral pulses intact. No lower extremity edema ASSESSMENT: Possible TIA, neurology consulted New onset paroxysmal atrial fibrillation with RVR, currently maintaining sinus mechanism PLAN: Obtain 2D echo to assess cardiac structure and function Continue current cardiac medications Continue telemetry monitoring Patient is stable for discharge home today pending echo results Further recommendations pending patient course Nurse practitioner note has been reviewed by physician. Signing provider agrees with the documented findings, assessment, and plan of care documented by HOSPICE RN as a scribe. Objective - Vital Signs Vital signs: Vital Signs Temp 98 F 04/22/24 07:40 Pulse 55 L 04/22/24 07:40 Resp 16 04/22/24 07:40 BP 117/70 04/22/24 07:40 Pulse Ox 97 04/22/24 07:40 FiO2 Intake & Output 04/21/24 04/22/24 04/22/24 18:59 06:59 18:59 Intake Total 1500 540 560 Output Total 400 Balance 1100 540 560 Weight 72.575 kg 75.5 kg Intake: IV 20 Invasive Line 1 10 Invasive Line 2 10 Intake, IV Titration 1500 Amount Sodium Chloride 0.9% 500 1500 ml 500 ml @ 999 mls/hr IV .Q31M ONE Rx#:[id number] Oral 540 540 Output: Urine 400 Other: Voiding Method Toilet - Labs CBC & Chem 7: 04/21/24 09:51 04/21/24 09:51 Labs: Abnormal Lab Results - Last 24 Hours (Table) 04/21/24 Range/Units 18:04 Troponin I 0.073 H* (0.000-0.034) ng/mL
[2024-04-22 11:39] VITALS: BP 121/57; PULSE 50; TEMP 96.5
--- NOTE | 2024-04-22 13:32 | CT ---
EXAMINATION TYPE: CT angio head neck CT DLP: 1698.5 mGycm, Automated exposure control for dose reduction was used. DATE OF EXAM: 04/22/2024 1:13 PM COMPARISON: None. CLINICAL INDICATION:Male, 83 years old with history of TIA, aneurysm; PHH, TIA TECHNIQUE: Axially acquired helical CT angiogram of the head and neck was obtained with contrast util izing 65 cc of [id number]-[id number] administered intravenously. Axial images are supplemented with 3D reconstru ctions which were post-processed at an independent workstation. NASCET criteria used. FINDINGS: CTA HEAD: No evidence of acute intracranial hemorrhage, mass effect, or midline shift. The ventricles, sulci, a nd cisterns are unremarkable. Cerebral volume loss. Bilateral aphakia. Hypodense scattered regions wi thin the bilateral periventricular white matter likely related to chronic small vessel ischemic disea se. The visualized portions of the internal carotid arteries, middle cerebral arteries, anterior cerebral arteries, and posterior cerebral arteries are patent. origin of the bilateral [employer] HISTORIAN. The basilar patent with second aneurysm measuring up to 4.7 mm (series 507, image 38). Nonopacificati on of the V4 segment of the left vertebral artery. CTA NECK: Right Carotid System: The common carotid artery and external carotid artery are patent. Mild calcified plaque at the caroti d bifurcation. The carotid bifurcation demonstrates no evidence of hemodynamically significant stenos is. The remaining portions of the internal carotid artery demonstrate normal size without significant narrowing. Left Carotid System: The common carotid artery and external carotid artery are patent. Mild noncalcified plaque along the common carotid artery. Minimal calcified plaque at the carotid bifurcation and proximal left internal carotid artery. The carotid bifurcation demonstrates no evidence of hemodynamically significant sten osis. The remaining portions of the internal carotid artery demonstrate normal size without significa nt narrowing. Right vertebral artery is dominant and patent. The left vertebral artery is diminutive with nonopacif ication of the V4 segment. The remaining portion is opacified. There is a four-vessel aortic arch. The origins of the great vessels are patent. No evidence of hemod ynamically significant stenosis. IMPRESSION: 1. No evidence of dissection of the cervical internal carotid arteries or any evidence of significant stenosis at the carotid bifurcations. 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 3. Nonopacification of the diminutive left vertebral artery V4 segment. 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 Dominant patent right vertebral artery. 4. No evidence of high-grade intracranial stenosis. [facility], , 04/22/2024 1:30 PM
--- NOTE | 2024-04-22 16:03 | P.HPIM ---
History of Present Illness H&P Date: 04/21/24 Chief Complaint: Atrial fibrillation with rapid response. HISTORY OF PRESENT ILLNESS: This is an 83-year-old male with a previous medical history significant for hyperlipidemia, history of severe gastroesophageal disease, he is a new patient of [facility], I started seeing him about few month ago, patient was recently seen because of candidal stomatitis and significant sore throat he was placed on famotidine 40 mg at bedtime along with nystatin swish and swallow and has been doing fine with that, apparently the patient woke up in the morning today, at 5:00 in the morning he had coffee, and he sat in the chair, and all of a sudden he became quite confused and according to his the patient could not even use his right side and he was somewhat having issues with finding the words, she contacted his son who is a nurse that works at [employer], and he asked her to call 911 and bring the patient to the emergency department at [facility] he was found to be in atrial fibrillation with rapid response, he was started on heparin drip, and the patient also was started on Cardizem drip, while he is in the ER he converted to sinus rhythm, patient was seen in consultation by cardiology, who started him on Lopressor 12.5 mg orally twice every day as well as Eliquis 5 mg orally twice every day, he was taken off his heparin drip, and he was admitted to the hospital for further evaluation recommendation, patient was completely cleared by the time I see him in the emergency department, he did not have any evidence of any neurological deficits, he seems to be back to his baseline, he will be seen in consultation by neurology for possible TIA rule out CVA REVIEW OF SYSTEMS: Constitutional: No documented fever, no chills, no night sweats. No weight change. No weakness, fatigue or lethargy. No daytime sleepiness. EENT: No headache. No blurred vision or double vision, no loss of vision. No loss of Hearing, no ringing in the ears, no dizziness. No nasal drainage or congestion. No epistaxis. No sore throat. Lungs: No shortness of breath, no cough, no sputum production. No wheezing. Reports dyspnea with activity. Cardiovascular: No chest pain, no lower extremity edema. No palpitations. No paroxysmal nocturnal dyspnea. No orthopnea. No lightheadedness or dizziness. No syncopal episodes. Abdominal: Reports abdominal pain. No nausea, vomiting. No diarrhea. No constipation. No bloody or tarry stools reports loss of appetite. Genitourinary: No dysuria, increased frequency, urgency. No urinary retention. Musculoskeletal: No myalgias. No muscle weakness, no gait dysfunction, no frequent falls. No back pain. No neck pain. Integumentary: No wounds, no lesions. No rash or pruritus. No unusual bruising. No change in hair or nails. Neurologic: No aphasia. No facial droop. No change in mentation. No head injury. No headache. No paralysis. No paresthesia. Psychiatric: No depression. No anxiety. No mood swings. Endocrine: No abnormal blood sugars. No weight change. PAST MEDICAL HISTORY: GERD with esophagitis. Mixed hyperlipidemia. Recent Peg stomatitis. History of SA node dysfunction. Osteoarthritis. Allergic rhinitis. Enlarged prostate. PAST SURGICAL HISTORY: Facial surgery. Orthopedic surgery Bilateral cataract surgery SOCIAL HISTORY: Patient used to smoke about a pack every day since the age of 17 and quit at the age of 51 he drinks occasionally, he denies any drug use or abuse, he lives with his . FAMILY HISTORY: Father at the age of 71 from leukemia and had recurrent infection, mother at the age of 71 from brain aneurysm, patient had 4 brothers 1 from brain aneurysm, 1 from lung cancer and COPD, and 2 from COPD, patient had 9 sisters 4 alive 1 is 94-year-old, with right total hip arthroplasty and had CVA and chronic kidney disease stage III, 1 had intracranial bleed and had surgery with bur hole and also had lupus, 1 is okay, 5 1 of bladder cancer at the age of 83, 1 at the age of 77 from brain aneurysm, and 1 at the age of 75 from lung cancer, and 2 from old age, patient has 1 son 56-year-old he is a nurse work at [employer], patient has 2 daughter 1 is 60-year-old and has Lyme disease, 1 is 54 has kidney failure from chemotherapy due to renal cell carcinoma, PHYSICAL EXAMINATION: General: 83-year-old male who is laying down in bed in no apparent distress. HEENT: Head is atraumatic, normocephalic, pupils were equal round reactive to light and recommendation, extraocular muscle movement were intact, sclera nonicteric, conjunctivae were pale, mucous membranes of the mouth are somewhat d ry. Neck: Supple, no JVP, normal carotid upstroke bilaterally, no lymphadenopathy. Chest: Decreased breath sounds at the bases, few rhonchi, no expiratory wheezes, no chest wall tenderness, no intercostal retractions. Heart: First heart sound is normal, second heart sounds normal there is no gallop or murmur. Abdomen: Soft, nontender, nondistended, positive bowel sounds. Extremities: There is no edema no calf tenderness DP +2 bilaterally. Neurologic examination: Patient is awake alert and oriented x3, cranial nerves II-12 appear grossly intact, muscle power were 5 out of 5 in upper extremities and 5 out of 5 in bilateral lower extremities, deep tendon reflexes normal bilaterally. ASSESSMENT AND PLAN: 1. New onset atrial fibrillation with rapid regular response. Patient is back to sinus rhythm continue Lopressor 12.5 mg twice every day, continue Eliquis 5 mg orally twice every day discontinue heparin drip, continue to monitor the patient very closely cardiology consultation appreciated, echocardiogram will be done for further evaluation recommendation. 2. TIA lower right CVA. Patient may have a history of paroxysmal atrial fibrillation that was not diagnosed before continue aspirin 81 mg once every day, recommend for the patient to go on atorvastatin 40 mg once every day, he will be seen in consultation by neurology however the patient is on red yeast rice probably intolerant of statin. 3 GERD with esophagitis. Continue patient on famotidine 40 mg at bedtime, continue omeprazole 20 mg in the morning.. 4. History of Peg stomatitis. Continue nystatin swish and swallow 3 times a day. 5. DVT prophylaxis. Currently on Eliquis 5 mg orally twice every day. 6. GI prophylaxis. Continue patient on famotidine 40 mg at bedtime. 7. Mixed hyperlipidemia currently on red yeast rice and omega-3. 8. Osteoarthritis continue Tylenol as needed. 9. Admit to inpatient. Estimated length of stay 2 midnights. 10. Patient is full code. Past Medical History Past Medical History: Asthma Additional Past Medical History / Comment(s): SA Node does not work History of Any Multi-Drug Resistant Organisms: None Reported Past Surgical History: Orthopedic Surgery Additional Past Surgical History / Comment(s): facial surgery - pt unsure if theres metal, orthopedic injection Past Anesthesia/Blood Transfusion Reactions: No Reported Reaction Smoking Status: Former smoker - Past Family History Mother Additional Family Medical History / Comment(s): of annyursem Father Additional Family Medical History / Comment(s): of leukopenia Medications and Allergies Home Medications Medication Instructions Recorded Confirmed Type Famotidine 40 mg PO BID 04/21/24 04/21/24 History Fluticasone Propion/Salmeterol 2 puff INHALATION DIRECTED 04/21/24 04/21/24 History [Advair Hfa 115-21 Mcg Inhaler] L.acidoph,Paracasei, B.lactis 1 cap PO DAILY 04/21/24 04/21/24 History [Probiotic] Nystatin 100,000 Unit/ml Susp 5 ml PO TID 04/21/24 04/21/24 History [Mycostatin Oral Susp] [place]-3/Dha/Epa/Fish Oil [Fish Oil 1 cap PO DAILY 04/21/24 04/21/24 History 1,000 mg Softgel] Red Yeast Rice 1,200 mg PO DAILY 04/21/24 04/21/24 History Vitamin B-12 [place] (Unknown 3 sprays MUCOUS MEM DAILY 04/21/24 04/21/24 History Strength) Apixaban [Eliquis] 5 mg PO BID #60 tab 04/22/24 Rx Metoprolol Tartrate [Lopressor] 12.5 mg PO BID #60 tab 04/22/24 Rx Allergies Allergy/AdvReac Type Severity Reaction Status Date / Time No Known Allergies Allergy Verified 04/21/24 13:43 Physical Exam Vitals: Vital Signs Temp Pulse Pulse Pulse Pulse Resp BP 04/22/24 11:38 96.5 F L 50 L 16 04/22/24 07:40 98 F 55 L 16 04/22/24 03:20 56 L 16 04/21/24 23:18 56 L 16 04/21/24 20:54 97.9 F 53 L 18 04/21/24 20:20 58 L 16 103/66 04/21/24 19:00 59 L 18 106/57 04/21/24 18:00 69 69 17 110/87 04/21/24 17:00 67 67 18 110/72 04/21/24 15:04 97.1 F L 60 60 18 105/64 BP BP Pulse Ox 04/22/24 11:38 121/57 95 04/22/24 07:40 117/70 97 04/22/24 03:20 105/57 95 04/21/24 23:18 109/64 94 L 04/21/24 20:54 114/67 96 04/21/24 20:20 95 04/21/24 19:00 96 04/21/24 18:00 96 04/21/24 17:00 110/72 95 04/21/24 15:04 105/64 95 Intake and Output 04/21/24 04/22/24 04/22/24 22:59 06:59 14:59 Intake Total 540 1320 Output Total 350 Balance 540 970 Intake: IV 40 Invasive Line 1 20 Invasive Line 2 20 Oral 540 1280 Output: Urine 350 Other: Voiding Method Toilet Toilet Weight 72.575 kg 75.5 kg Results CBC & Chem 7: 04/21/24 09:51 04/21/24 09:51 Labs: Abnormal Lab Results - Last 24 Hours (Table) 04/21/24 Range/Units 18:04 Troponin I 0.073 H* (0.000-0.034) ng/mL Thrombosis Risk Factor Assmnt - Choose All That Apply Any of the Below Risk Factors Present?: No Other Risk Factors: Yes Each Risk Factor Represents 3 Points: Age 75 years or older Other congenital or acquired thrombophilia - If yes, enter type in comment: No Thrombosis Risk Factor Assessment Total Risk Factor Score: 3 Thrombosis Risk Factor Assessment Level: Moderate Risk
[2024-04-22] MEDS: NYSTATIN 100,000 UNIT/ML SUSP 500,000 UNIT/5 ML CUP PO SCH (17:36)
--- NOTE | 2024-04-22 18:08 | CA ---
Transthoracic Echo Report Name: Jason Arias Age: 83 Gender: M : 1940 Exam Date: 04/22/2024 15:11 Exam Location: [place] [facility] Ht (in): 75 Wt (lb): 320 Ordering Physician: Lyndsey Bennett Attending/Referring Phys: [id number], Sabrina Electrotherapist Tameka Santos RDCS Procedure CPT: Indications: LV function, new onset A-fib, possible TIA Cardiac Hx: Technical Quality: Technically difficult study Contrast 1: Definity Total Dose (mL): 2 Contrast 2: Total Dose (mL): MEASUREMENTS (Male / Female) Normal Values 2D ECHO LVOT Diameter 2.1 cm LV Diastolic Volume MOD BP 89.8 cm??? 67 - 155 / 56 - 104 cm??? LV Systolic Volume MOD BP 36.5 cm??? 22 - 58 / 19 - 49 cm??? LV Ejection Fraction MOD BP 59.4 % >= 55 % LV Cardiac Index MOD BP 980.9 cm???/min???m??? LV Diastolic Volume MOD 4C 90.0 cm??? LV Systolic Volume MOD 4C 37.8 cm??? LV Ejection Fraction MOD 4C 58.0 % LV Cardiac Index MOD 4C 960.3 cm???/min???m??? LV Diastolic Length 4C 7.8 cm LV Systolic Length 4C 6.8 cm LV Diastolic Volume MOD 2C 85.5 cm??? LV Systolic Volume MOD 2C 33.8 cm??? LV Ejection Fraction MOD 2C 60.5 % LV Cardiac Index MOD 2C 951.4 cm???/min???m??? LV Diastolic Length 2C 7.4 cm LV Systolic Length 2C 6.5 cm DOPPLER AV Peak Velocity 100.9 cm/s AV Peak Gradient 4.1 mmHg AV Mean Velocity 73.1 cm/s AV Mean Gradient 2.4 mmHg AV Velocity Time Integral 23.6 cm LVOT Peak Velocity 83.3 cm/s LVOT Peak Gradient 2.8 mmHg LVOT Velocity Time Integral 18.6 cm LVOT Stroke Volume 62.9 cm??? LVOT Stroke Volume Index 23.5 ml/m??? LVOT Cardiac Index 1157.3 cm???/min???m??? AV Area Cont Eq vti 2.7 cm??? AV Area Cont Eq pk 2.8 cm??? MV Area PHT 3.5 cm??? Mitral E Point Velocity 53.2 cm/s Mitral A Point Velocity 45.1 cm/s Mitral E to A Ratio 1.2 MV Deceleration Time 215.7 ms TR Peak Velocity 235.4 cm/s TR Peak Gradient 22.2 mmHg Right Atrial Pressure 15.0 mmHg Pulmonary Artery Systolic Pressu 37.2 mmHg Right Ventricular Systolic Press 37.2 mmHg FINDINGS Left Ventricle Left ventricular ejection fraction is estimated at 55-60 %. Left ventricular cavity size normal. Left ventricular wall thickness normal. No obvious regional wall motion abnormalities. Right Ventricle Right ventricle not well visualized. Mild pulmonary hypertension. Right Atrium Right atrium not well visualized. Left Atrium Left atrium not well visualized. Mitral Valve Structurally normal mitral valve. No mitral stenosis, regurgitation or prolapse. Aortic Valve Trileaflet aortic valve. Aortic valve sclerosis. No aortic valve stenosis or regurgitation. Tricuspid Valve Structurally normal tricuspid valve. No tricuspid stenosis. Trace tricuspid regurgitation. Pulmonic Valve Pulmonic valve not well visualized. No pulmonic stenosis. No pulmonic regurgitation. Pericardium No pericardial effusion. Aorta Aortic annulus normal. CONCLUSIONS Left ventricular ejection fraction is estimated at 55-60 %. No obvious regional wall motion abnormalities. Mild pulmonary hypertension with RVSP 37 mmHg No significant valve dysfunction Previewed by: Dr Adrian Cota (Electronically Signed) Final Date: 22 April 2024 18:07
[2024-04-22] MEDS ORDERED: SYMBICORT 160-4.5 MCG INHALER INHALATION SCH (20:00)
[2024-04-22] MEDS ORDERED: FAMOTIDINE 20 MG TAB PO SCH (21:00)
[2024-04-23] MEDS ORDERED: VITAMIN B12 MUCOUS MEM SCH (09:00)
[2024-04-23] MEDS ORDERED: NON FORMULARY DRUG (Omega-3/Dha/Epa/Fish Oil [Fish Oil 1,000 Mg Softgel] 1 EACH Capsule) PO SCH (09:00)
[2024-04-23] MEDS ORDERED: NON FORMULARY DRUG (Red Yeast Rice [Red Yeast Rice] 600 MG Tablet) PO SCH (09:00)
[2024-04-23] MEDS ORDERED: LACTOBACILLUS ACIDOPHILUS/PECT 1 EACH CAPSULE PO SCH (09:00)
--- NOTE | 2024-04-23 09:06 | P.CNNES ---
History of Present Illness Consult date: 04/22/24 Requesting physician: Kaylene Singh Reason for Consult: POSSIBLE TIA History of Present Illness: Patient is a 83-year-old left-handed male came to the hospital by ambulance yesterday at 9:20 AM. Patient states that he came to the hospital because he couldn't breathe, his SA node doesn't work. Every morning he does breathing exercises, in which she takes a breath for 22nd, holds for 20 seconds and then exists over 20 seconds. He does it 3 times a day. He believes that it keeps his brain oxygenated so he does not get brain fog. Patient states that if he does not do it for 4 days he gets depressed. He usually wakes up at around 7 AM. However yesterday he woke up at 5 AM. After he drank his coffee, sat in the chair, then he started doing his routine breathing exercise when he felt that he could not do it. He felt fuzzy, loopy, instead of doing for 20 seconds, he was not able to prolong beyond 15 seconds each step. That he felt that he will throw up. His came over, and he could not respond, says he just wanted to try. His speech was slow, and she could not understand what they were saying. His called the EMS. While he was being transported, he noticed pain in the neck and left shoulder. EMS gave him 4 aspirins. As per EMS flowsheet when they arrived, patient was sitting in chair in the living room. Patient is awake alert oriented x 4. He was complaining of feeling weak. Patient had mentioned that he was doing his breathing exercises when he began feeling weak. Denied any chest pain. During transport patient began complaining of pain between his shoulder blades, nonradiating. Aspirin 324 mg orally administered due to suspected cardiac pain. Patient's blood p ressure at the scene was 112/69, pulse rate 64 respiration 14, saturation 97%. Patient has been afebrile. Blood pressure has been stable, although running low sometimes 73/55. Chest x-ray showed no acute cardiopulmonary process. EKG shows atrial fibrillation with rapid ventricular rate. Repeat EKG was sinus rhythm. Blood test shows normal CBC, PT PTT, normal CMP, troponin is mildly elevated 0.073. Patient states that last year he had a similar episode when he couldn't breathe and felt fuzzy in his hearing was going, and was losing focus. His called the ambulance and they gave him 4 aspirins and by the time he reached the ER, all symptoms were gone. He stayed overnight in the ER and was released. Home medications include Pepcid, fish oil, Advair. Patient does not take any antiplatelet medication. He denies any blood pressure or diabetes. Patient has smoked 1 pack per day from age 17 until he quit at age 51. He used to drink 2-3 beers per day, quit 2 weeks ago. No marijuana use. Patient states that his mother, 3 sisters and one brother had cerebral aneurysms. Patient's last screening was done about 6 years ago and was found to have "something", and was recommended to have rechecked in 6 months, but he has not had any follow-ups done. Past Medical History Past Medical History: Asthma Additional Past Medical History / Comment(s): SA Node does not work History of Any Multi-Drug Resistant Organisms: None Reported Past Surgical History: Orthopedic Surgery Additional Past Surgical History / Comment(s): facial surgery - pt unsure if theres metal, orthopedic injection Past Anesthesia/Blood Transfusion Reactions: No Reported Reaction Smoking Status: Former smoker - Past Family History Mother Additional Family Medical History / Comment(s): of annyursem Father Additional Family Medical History / Comment(s): of leukopenia Medications and Allergies Home Medications Medication Instructions Recorded Confirmed Type Famotidine 40 mg PO BID 04/21/24 04/21/24 History Fluticasone Propion/Salmeterol 2 puff INHALATION DIRECTED 04/21/24 04/21/24 History [Advair Hfa 115-21 Mcg Inhaler] L.acidoph,Paracasei, B.lactis 1 cap PO DAILY 04/21/24 04/21/24 History [Probiotic] Nystatin 100,000 Unit/ml Susp 5 ml PO TID 04/21/24 04/21/24 History [Mycostatin Oral Susp] [place]-3/Dha/Epa/Fish Oil [Fish Oil 1 cap PO DAILY 04/21/24 04/21/24 History 1,000 mg Softgel] Red Yeast Rice 1,200 mg PO DAILY 04/21/24 04/21/24 History Vitamin B-12 [place] (Unknown 3 sprays MUCOUS MEM DAILY 04/21/24 04/21/24 History Strength) Apixaban [Eliquis] 5 mg PO BID #60 tab 04/22/24 Rx Metoprolol Tartrate [Lopressor] 12.5 mg PO BID #60 tab 04/22/24 Rx Allergies Allergy/AdvReac Type Severity Reaction Status Date / Time No Known Allergies Allergy Verified 04/21/24 13:43 Physical Examination - Vital Signs Vital Signs: Vital Signs Temp Pulse Pulse Pulse Pulse Resp BP 04/22/24 07:40 98 F 55 L 16 04/22/24 03:20 56 L 16 04/21/24 23:18 56 L 16 04/21/24 20:54 97.9 F 53 L 18 04/21/24 20:20 58 L 16 103/66 04/21/24 19:00 59 L 18 106/57 04/21/24 18:00 69 69 17 110/87 04/21/24 17:00 67 67 18 110/72 04/21/24 15:04 97.1 F L 60 60 18 105/64 04/21/24 12:45 68 18 04/21/24 12:30 129 H 18 111/98 04/21/24 11:34 145 H 04/21/24 11:33 115 H 04/21/24 11:32 130 H BP BP BP Pulse Ox 04/22/24 07:40 117/70 97 04/22/24 03:20 105/57 95 04/21/24 23:18 109/64 94 L 04/21/24 20:54 114/67 96 04/21/24 20:20 95 04/21/24 19:00 96 04/21/24 18:00 96 04/21/24 17:00 110/72 95 04/21/24 15:04 105/64 95 04/21/24 12:45 102/68 96 04/21/24 12:30 96 04/21/24 11:34 73/55 04/21/24 11:33 85/71 04/21/24 11:32 104/88 Intake and Output 04/21/24 04/22/24 04/22/24 22:59 06:59 14:59 Intake Total 540 560 Balance 540 560 Intake: IV 20 Invasive Line 1 10 Invasive Line 2 10 Oral 540 540 Other: Voiding Method Toilet Toilet Weight 72.575 kg 75.5 kg Patient is an elderly male, in no acute distress. Patient is alert awake oriented to time place and person. Speech and language functions are normal. Patient can name and repeat very well. No aphasia or dysarthria. Attention, concentration and fund of knowledge is adequate. On cranial nerve examination, pupils are equal, round and reacting to light, visual sims are full on confrontation, with no neglect on double simultaneous stimulation. Extraocular muscles are intact with no nystagmus. Face is symmetric, tongue protrudes to the midline. Palatal elevation and sensation normal, hearing and shoulder shrug normal, facial sensation normal. On muscle strength testing, there is no pronator drift and the strength is normal in arms and legs distally and proximally. Deep tendon reflexes are symmetric 1+ and plantars are downgoing. Sensory to touch is equal with no neglect on double simultaneous stimulation. Cerebellar function showed no ataxia for [id number] testing. No dysdiadochokinesia. No ataxia for [id number] testing on either side. Tone and bulk of muscles normal. Gait deferred.. On general examination, there is no carotid bruit or murmur, S1-S2 audible. Chest is clear on consultation. Abdomen is soft nontender. No organomegaly, bowel sounds present. Peripheral pulses are present. No peripheral edema. Results - Laboratory Findings CBC and BMP: 04/21/24 09:51 04/21/24 09:51 Abnormal Lab Findings: Abnormal Labs 04/21/24 04/21/24 04/21/24 09:51 09:51 18:04 Lymphocytes # 0.9 L Chloride 111 H Glucose 114 H Troponin I 0.073 H* Total Protein 6.2 L Assessment and Plan Assessment: * Episode of generalized weakness, likely due to cardiac cause. Patient was noted to have atrial fibrillation with rapid ventricular rate. * Elevated cardiac enzymes * Doubt TIA * Strong family history of cerebral aneurysm. * New onset paroxysmal atrial fibrillation with RVR. * Hyperlipidemia * Orthostatic hypotension * X tobacco use Plan: * Patient has been started on Eliquis 5 mg twice a day. * Patient also being followed up with cardiology, considering cardiac catheterization in the morning. * CTA of head and neck, rule out carotid stenosis, or cerebral aneurysm. * 2-D echo revealed LV EF 55-60%. No obvious regional wall motion abnormalities. Mild pulmonary hypertension. No significant valve dysfunction. * Lipid panel with cholesterol 180, LDL 113, HDL 49, triglycerides 85. Suggest starting Lipitor 40 mg daily. * Discussed with patient's family as well in detail. * Neurology will follow. Thank you for the consult. Time with Patient: Greater than 30
--- NOTE | 2024-04-23 14:13 | P.DS ---
Providers Date of admission: 04/21/24 13:06 Expected date of discharge: 04/22/24 Attending physician: Kaylene Singh Consults: 04/21/24 13:05 Consult Physician Urgent Consulting Provider: [facility] Consult Reason/Comments: A-fib with rapid ventricular response Do you want consulting provider notified?: Yes 04/21/24 13:09 Consult Physician Routine Consulting Provider: Adolfo Choe Consult Reason/Comments: POSSIBLE TIA Do you want consulting provider notified?: Yes Primary care physician: Kaylene Singh Hospital Course: HISTORY OF PRESENT ILLNESS: This is an 83-year-old male with a previous medical history significant for hyperlipidemia, history of severe gastroesophageal disease, he is a new patient of [facility], I started seeing him about few month ago, patient was recently seen because of candidal stomatitis and significant sore throat he was placed on famotidine 40 mg at bedtime along with nystatin swish and swallow and has been doing fine with that, apparently the patient woke up in the morning today, at 5:00 in the morning he had coffee, and he sat in the chair, and all of a sudden he became quite confused and according to his the patient could not even use his right side and he was somewhat having issues with finding the words, she contacted his son who is a nurse that works at [employer] [employer], and he asked her to call 911 and bring the patient to the emergency department at [facility] he was found to be in atrial fibrillation with rapid response, he was started on heparin drip, and the patient also was started on Cardizem drip, while he is in the ER he converted to sinus rhythm, patient was seen in consultation by cardiology, who started him on Lopressor 12.5 mg orally twice every day as well as Eliquis 5 mg orally twice every day, he was taken off his heparin drip, and he was admitted to the hospital for further evaluation recommendation, patient was completely cleared by the time I see him in the emergency department, he did not have any evidence of any neurological deficits, he seems to be back to his baseline, he will be seen in consultation by neurology for possible TIA rule out CVA 04/22: Patient is ambulating very well in the hallway, he has gone to the bathroom, he was seen earlier by cardiology and he was cleared to go home if his echocardiogram is okay, echocardiogram was done the result of which still pending at the time of dictation, patient also did have a CT angiography of the neck as well as the brain and that showed 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 I spoke with the patient and his family about that and he will need to follow-up with the neuro surgeon for possible neurointervention to rule out any bleeding since the patient had a family history of brain aneurysm, he was advised to ask his family member to be checked including his son and 2 daughters, patient was placed on Lopressor 12.5 mg twice every day as well as Eliquis 5 mg orally twice every day, patient will need to be started on Lipitor 40 mg orally once every for secondary stroke prevention, this will be called to his pharmacy, I will follow-up with the patient as an outpatient, echocardiogram was read by cardiology and showed normal ejection fraction no wall motion abnormalities, no valvular dysfunction, mild pulmonary hypertension. REVIEW OF SYSTEMS: Constitutional: No documented fever, no chills, no night sweats. No weight change. No weakness, fatigue or lethargy. No daytime sleepiness. EENT: No headache. No blurred vision or double vision, no loss of vision. No loss of Hearing, no ringing in the ears, no dizziness. No nasal drainage or congestion. No epistaxis. No sore throat. Lungs: No shortness of breath, no cough, no sputum production. No wheezing. Reports dyspnea with activity. Cardiovascular: No chest pain, no lower extremity edema. No palpitations. No paroxysmal nocturnal dyspnea. No orthopnea. No lightheadedness or dizziness. No syncopal episodes. Abdominal: Reports abdominal pain. No nausea, vomiting. No diarrhea. No constipation. No bloody or tarry stools reports loss of appetite. Genitourinary: No dysuria, increased frequency, urgency. No urinary retention. Musculoskeletal: No myalgias. No muscle weakness, no gait dysfunction, no frequent falls. No back pain. No neck pain. Integumentary: No wounds, no lesions. No rash or pruritus. No unusual bruising. No change in hair or nails. Neurologic: No aphasia. No facial droop. No change in mentation. No head injury. No headache. No paralysis. No paresthesia. Psychiatric: No depression. No anxiety. No mood swings. Endocrine: No abnormal blood sugars. No weight change. Discharge diagnoses: 1. New onset atrial fibrillation with rapid regular response. 2. TIA lower rule out CVA. 3 GERD with esophagitis. 4. History of Peg stomatitis. 5. 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 6. Allergic rhinitis. 7. Mild COPD. 8. Enlarged prostate. 9. Osteoarthritis. Patient Condition at Discharge: Stable Plan - Discharge Summary Discharge Rx Participant: No New Discharge Prescriptions: New Apixaban [Eliquis] 5 mg PO BID #60 tab Metoprolol Tartrate [Lopressor] 12.5 mg PO BID #60 tab Continue Nystatin 100,000 Unit/ml Susp [Mycostatin Oral Susp] 5 ml PO TID Vitamin B-12 [place] (Unknown Strength) 3 sprays MUCOUS MEM DAILY Famotidine 40 mg PO BID Red Yeast Rice 1,200 mg PO DAILY Traphill-3/Dha/Epa/Fish Oil [Fish Oil 1,000 mg Softgel] 1 cap PO DAILY L.acidoph,Paracasei, B.lactis [Probiotic] 1 cap PO DAILY Fluticasone Propion/Salmeterol [Advair Hfa 115-21 Mcg Inhaler] 2 puff INHALATION DIRECTED Discharge Medication List Famotidine 40 mg PO BID 04/21/24 [History] Fluticasone Propion/Salmeterol [Advair Hfa 115-21 Mcg Inhaler] 2 puff INHALATION DIRECTED 04/21/24 [History] L.acidoph,Paracasei, B.lactis [Probiotic] 1 cap PO DAILY 04/21/24 [History] Nystatin 100,000 Unit/ml Susp [Mycostatin Oral Susp] 5 ml PO TID 04/21/24 [History] Traphill-3/Dha/Epa/Fish Oil [Fish Oil 1,000 mg Softgel] 1 cap PO DAILY 04/21/24 [History] Red Yeast Rice 1,200 mg PO DAILY 04/21/24 [History] Vitamin B-12 [place] (Unknown Strength) 3 sprays MUCOUS MEM DAILY 04/21/24 [History] Apixaban [Eliquis] 5 mg PO BID #60 tab 04/22/24 [Rx] Metoprolol Tartrate [Lopressor] 12.5 mg PO BID #60 tab 04/22/24 [Rx] Follow up Appointment(s)/Referral(s): Kaylene Singh MD [Primary Care Provider] - 1 Week (office closed, please call to make appointment) Jacob Palomo MD [STAFF PHYSICIAN] - 1 Week (office closed, please call to make appointment) Discharge Disposition: HOME SELF-CARE
== END 2024-04-22 18:08 | disposition home or self-care (01) ==
LOC: EC 09:20 → 3SCARD 13:06
PROVIDERS: ADMIT Internal Medicine; ATTEND Internal Medicine
DX: I48.0 Paroxysmal atrial fibrillation (principal); G45.9 Transient cerebral ischemic attack, unspecified; I72.5 Aneurysm of other precerebral arteries; J44.89 Other specified chronic obstructive pulmonary disease; M25.512 Pain in left shoulder; M54.2 Cervicalgia; R79.89 Other specified abnormal findings of blood chemistry; I95.1 Orthostatic hypotension; E78.2 Mixed hyperlipidemia; I27.20 Pulmonary hypertension, unspecified; K21.00 Gastro-esophageal reflux disease with esophagitis, without bleeding; B37.0 Candidal stomatitis; M19.90 Unspecified osteoarthritis, unspecified site; N40.0 Benign prostatic hyperplasia without lower urinary tract symptoms; Z79.51 Long term (current) use of inhaled steroids; Z79.899 Other long term (current) drug therapy; Z87.891 Personal history of nicotine dependence
CPT/HCPCS: 96361; 96374; 99285; 36415; 93005; 85379; 80061; 80053; 83735; 84484; 85025; 85610; 85730; 71046; 70496; 70498; G0378 ×2; C8929; Q9957; J1644 ×2; Q9967; 93306

== ENCOUNTER → 2024-04-25 | Outpatient (CLI) | payer MEDICARE ==
--- NOTE | 2024-04-25 10:26 | FL ---
EXAMINATION TYPE: FL barium swallow DATE OF EXAM: 04/25/2024 CLINICAL INDICATION: 83-year-old male K21.00, reflux. Patient being treated for thrush. Burning sensa tion. Reports being sick every winter. COMPARISON: None Total Fluoroscopy Time: 1 minute 57 seconds Total DAP: 25 mGycm2 42 images obtained. FINDINGS: There is mild to moderate tracheal aspiration. During the coughing, the patient comments that "this a lways happens." Mild anterior endplate spondylosis in cervical spine causes mild impressions along the posterior wall of the cervical esophagus but without any obstruction. The thoracic portion has a normal course and caliber and normal motility. The mucosa is normal and no persistent filling defect is encountered. There is a tiny sliding hiatal hernia. No gastroesophageal reflux is identified. IMPRESSION: 1. Mild to moderate tracheal aspiration. During the coughing, the patient comments that "this always happens." Consider speech pathology evaluation. 2. Tiny sliding hiatal hernia. No reflux seen. 3. No erosions or stricture. [facility], , 04/25/2024 10:24 AM
== END | disposition home or self-care (01) ==
LOC: RADFLMAIN 08:09
PROVIDERS: ATTEND Internal Medicine
DX: K21.00 Gastro-esophageal reflux disease with esophagitis, without bleeding
CPT/HCPCS: 74220

== ENCOUNTER → 2024-05-11 | Outpatient (CLI) | payer MEDICARE ==
--- NOTE | 2024-05-11 12:49 | FL ---
EXAMINATION TYPE: FL barium swallow w video DATE OF EXAM: 05/11/2024 CLINICAL HISTORY: 83-year-old male T17.900A, pulmonary aspiration TECHNIQUE: Deglutition study is performed utilizing thin liquid barium, barium thick pudding, and ba rium coated cracker. Total fluoroscopy time 1 minute 10 seconds. Total images: None. Real-time fluoroscopy support was provided to speech pathology. Total DAP: 20 mGycm2. COMPARISON: None. FINDINGS: There is intermittent transient penetration with large bolus of thin liquids. No other penetration or aspiration is seen. No significant residuals. IMPRESSION: Intermittent transient penetration with larger boluses of thin liquids. No other penetration or aspir ation. Please refer to speech therapist notes for further details if necessary. [facility], , 05/11/2024 12:46 PM
== END | disposition home or self-care (01) ==
LOC: RADFLMAIN 10:42
PROVIDERS: ATTEND Internal Medicine
DX: T17.900A Unspecified foreign body in respiratory tract, part unspecified causing asphyxiation, initial encounter (principal)
CPT/HCPCS: 74230

== ENCOUNTER → 2025-02-02 | Outpatient (CLI) | payer MEDICARE ==
--- NOTE | 2025-02-02 16:02 | XR ---
EXAMINATION TYPE: XR chest 2V DATE OF EXAM: 02/02/2025 3:57 PM COMPARISON: 04/21/2024. CLINICAL INDICATION: Male, 84 years old with history of R06.02 SOB; [facility] TECHNIQUE: XR chest 2V Frontal and lateral views of the chest. FINDINGS: Lungs/Pleura: There is no evidence of pleural effusion, focal consolidation, or pneumothorax. Pulmonary vascularity: Unremarkable. Heart/mediastinum: Cardiomediastinal silhouette is unremarkable. Musculoskeletal: No acute osseous pathology. IMPRESSION: No acute cardiopulmonary disease/process. [facility], , 02/02/2025 4:00 PM
== END | disposition home or self-care (01) ==
LOC: RADXRMAIN 15:43
PROVIDERS: ATTEND Internal Medicine
DX: R06.02 Shortness of breath (principal)
CPT/HCPCS: 71046